=== PATIENT | male | born 1970 | race Caucasian/White ===

== ENCOUNTER → 2021-10-31 | Outpatient (CLI) | payer BC | END | disposition home or self-care (01) | LOC: LAB SHORT 07:11 → LAB 07:11 | DX: K11.8 Other diseases of salivary glands (principal) | CPT/HCPCS: 88173 ==

== ENCOUNTER 2022-11-16 06:37 | Day surgery (SDC) | payer BC ==
[~2022-11-16] VITALS: Ht 185.4 cm; Wt 75.9 kg
--- NOTE | 2022-11-16 08:49 | NUR ---
11/16/22 0849 Sylvia Corado UNDER HEAD, RIGHT ARM TUCKED, LEFT ARM SECURED ON PADDED ARM BOARD, PILLOW UNDER KNEES.
--- NOTE | 2022-11-16 11:16 | NUR ---
11/16/22 1116 ADRIENNE ARNETT PT ABLE TO URINATE PRIOR TO DISCHARGE.
== END 2022-11-16 11:11 | disposition home or self-care (01) ==
LOC: ORSCSDS 06:37
PROVIDERS: Otolaryngology
PROC: 099R8ZZ Drainage of Left Maxillary Sinus, Via Natural or Artificial Opening Endoscopic (ICD-10-PCS; principal; 2022-11-16 08:00)
PROC: 09SM0ZZ Reposition Nasal Septum, Open Approach (ICD-10-PCS; principal; 2022-11-16 08:00)
DX: R04.0 Epistaxis (principal); I10 Essential (primary) hypertension
CPT/HCPCS: J0171; J1100; J2405; J2704; J2765; J3010

== ENCOUNTER 2024-06-02 13:36 | Emergency (ER) | payer OTHER, BC ==
[~2024-06-02] VITALS: Ht 188 cm; Wt 77.1 kg
[2024-06-02 13:43] VITALS: BP 167/112
[2024-06-02] MEDS ORDERED: Diphth,Pertuss(Acell),Tet Vac 0.5 ML VIAL IM ONE (14:40)
== END 2024-06-02 15:13 | disposition home or self-care (01) ==
LOC: ER 13:36
DX: S01.412A Laceration without foreign body of left cheek and temporomandibular area, initial encounter (principal); W01.198A Fall on same level from slipping, tripping and stumbling with subsequent striking against other object, initial encounter; I10 Essential (primary) hypertension
CPT/HCPCS: 12011; 90471; 90702; 90715; 99282-25